=== PATIENT | female | born 1975 | race African-American/Black ===

== ENCOUNTER 2016-11-14 11:36 | Inpatient (IN) | payer MEDICAID ==
[2016-11-14] MEDS ORDERED: ZOFRAN IV PRN (11:44)
[2016-11-14] MEDS ORDERED: ePHEDrine SULFATE IV PRN (11:44)
[2016-11-14] MEDS ORDERED: SUBLIMAZE IV PRN (11:44)
[2016-11-14] MEDS ORDERED: XYLOCAINE 2% INFILTRATI ONE ×2 (11:44→14:41)
[2016-11-14] MEDS ORDERED: BRETHINE SUB-Q PRN (11:44)
[2016-11-14] MEDS ORDERED: MINERAL OIL PO PRN (11:44)
[2016-11-14] MEDS ORDERED: POLYCILLIN/NS 2 GM/100 ML 2 GM/100 ML BAG IV ONE (11:44)
--- NOTE | 2016-11-14 11:51 | History and Physical Report ---
History of Present Illness Date of examination: 11/14/16 Date of admission: 11/14/16 11:36 Chief complaint: actice labor, sent from office 7cms History of present illness: EDC Confirmation: 11/21/2016 Past History : 5 Term Births: 2 Premature Births: 1 Living Children: 3 Para: 3 Aborta: 1 Spont. Ab: 1 # 1 Delivery date: 11/06/1994 Weeks Gestation: 40 labor: no Delivery type: Hours of labor: 13 Delivery location: [facility] Sex: Male Comments: vaginal breech delivery # 2 Delivery date: 08/01/2004 Weeks Gestation: 24 labor: yes Delivery type: Delivery location: [facility] Infant Sex: Male weight: 15 oz Comments: survived # 3 Delivery date: 07/23/2011 Weeks Gestation: 40 labor: no Delivery type: Hours of labor: 5 Delivery location: [facility] Infant Sex: Male # 4 Delivery date: 09/09/2014 Delivery type: SAB Past Medical History Abnormal PAP: negative CINDY Exposure: negative Infertility: negative Uterine Anomaly: negative Uterine Surgery (not C/S): negative Other Gynecologic Problems: negative Infection History Hx of STD: none HIV Risk Eval: low risk Hepatitis B Risk Eval: low risk Personal hx. of genital herpes: yes Partner hx. of genital herpes: no Varicella/Chicken Pox Status: Previous Disease TB Risk: no Genetic History ADVANCED MATERNAL AGE Congenital Heart Defect: Mom: no Dad: no Domenica Disease: Mom: no Dad: no Thalassemia Mom: no Dad: no Neural Tube Defect Mom: no Dad: no Down's Syndrome Mom: no Dad: no Paul-Sachs Mom: no Dad: no Sickle Cell Disease/Trait Mom: no Dad: no Hemophilia Mom: no Dad: no Muscular Dystrophy Mom: no Dad: no Cystic Fibrosis Mom: no Dad: no Arthur Chorea Mom: no Dad: no Mental Retardation Mom: no Dad: no Fragile X Mom: no Dad: no Other Genetic/Chromosomal Disorder Mom: no Dad: no Child w/other defect Mom: no Dad: no Enviromental Exposures Xray Exposure: no Medication, drug, or alcohol use since LMP: no Chemical/Other Exposure: no Exposure to Cat Liter: no Active Medications (reviewed today): PNV () Current Allergies (reviewed today): No known allergies Past History Social history: no significant social history, - Obstetrical History Expected Date of Delivery: 11/21/16 Actual Gestation: 39 Week(s) 0 Day(s) : 5 Para: 3 Hx # Term Pregnancies: 2 Number of Pregnancies: 1 Spontaneous Abortions: 1 Induced : 0 Number of Living Children: 3 Medications and Allergies Active Meds: Active Medications Ephedrine Sulfate (Ephedrine Sulfate) 10 mg IV Q2M PRN PRN Reason: Hypotension Stop: 11/14/16 11:49 Fentanyl (Sublimaze) 100 mcg IV Q2H PRN PRN Reason: Labor Pain Ampicillin Sodium (Polycillin/Ns 2 Gm/100 Ml) 2 gm in 100 mls @ 100 mls/hr IV ONCE ONE PRN Reason: Protocol Stop: 11/14/16 12:43 Ampicillin Sodium (Polycillin/Ns 1 Gm/50 Ml) 1 gm in 50 mls @ 100 mls/hr IV Q4HR LES PRN Reason: Protocol Lactated Ringer's (Lactated Ringers) 1,000 mls @ 125 mls/hr IV DIRECT LES Oxytocin/Sodium Chloride (Pitocin/Ns 20 Unit/1000ml Drip) 20 units in 1,000 mls @ 125 mls/hr IV DIRECT LES Lidocaine (Xylocaine 2%) 20 ml INFILTRATI ONCE ONE Stop: 11/14/16 11:45 Mineral Oil (Mineral Oil) 30 ml PO QHS PRN PRN Reason: Constipation Ondansetron HCl (Zofran) 4 mg IV Q8H PRN PRN Reason: Nausea And Vomiting Terbutaline Sulfate (Brethine) 0.25 mg SUB-Q ONCE PRN PRN Reason: Hyperstimulation/Hypertonicity Stop: 11/14/16 11:45 Review of Systems All systems: negative - Physical Exam Breasts: Positive: normal Cardiovascular: Regular rate Lungs: Positive: Clear to auscultation, Normal air movement Abdomen: Positive: normal appearance, soft Genitourinary (Female): Positive: normal external genitalia, normal perenium Vulva: both: normal Vagina: Positive: normal moisture Uterus: Positive: normal size, normal contour Anus/Rectum: Positive: normal perianal skin Extremities: Positive: normal Deep Tendon Reflex Grade: Normal +2 - Obstetrical FHR: category 1 Uterine Contraction Monitor Mode: External Cervical Dilatation: 7 Cervical Effacement Percentage: 80 station: -1 Uterine Contraction Frequency (min): 3-5 Uterine Contraction Duration: 90 Uterine Contraction Pattern: Regular Uterine Tone Measurement Phase: Contraction Uterine Contraction Intensity: Moderate Results All other labs normal. Blood Type: B (08/15/2016) Rh Type: positive (08/15/2016) Rh Antibody Screen: negative (08/15/2016) Hgb: 12.9 (08/15/2016) Hct: 40.8 (08/15/2016) Platelets: 211 (08/15/2016) Rubella: immune (08/15/2016) Pap Smear: normal (08/09/2016) Urine Culture: neg (08/15/2016) 1 Hour GTT: 141 (08/15/2016) 3 Hour GTT - fastin (08/21/2016) - 1 hour: 160 (08/21/2016) - 2 hour: 152 (08/21/2016) - 3 Hour: 117 (08/21/2016) Optional Labs Sickle Cell: negative (06/18/2016) Cystic Fibrosis: negative (06/18/2016) Patient: JANENE IBANEZ ID: [id number] Note: All result statuses are Final unless otherwise noted. Tests: (1) Chlamydia/GC Amplification ([id number]) Order Note: Clinical Information: SRC:VR SRC:UR Chlamydia trachomatis, FIDENCIO Negative Negative *1 Neisseria gonorrhoeae, FIDENCIO Negative Negative *2 Tests: (2) Strep Gp B FIDENCIO ([id number]) ! Strep Gp B FIDENCIO [A] Positive Negative *3 Assessment and Plan 41y/o @ 39 weeks in active labor. patient seen in office today for routine NST d/t AMA, c/o ctx since this morning. SVE /-1 BBOW, vertex. GBS + . EFW at [facility] 10/30 6#0. Admission orders in EMR. Anticipate . Dr. Murcia aware of admission. - Patient Problems (1) Active labor at term Current Visit: Yes Status: Acute (2) GBS carrier Current Visit: Yes Status: Acute Plan to address problem: Antibiotics q4h until delivery (3) 39 weeks gestation of Current Visit: Yes Status: Acute (4) Advanced maternal age (AMA), 40 years or greater Current Visit: Yes Status: Acute
[2016-11-14] MEDS ORDERED: PITOCin/NS 20 UNIT/1000ML DRIP 20 UNITS/1,000 ML BAG IV SCH (12:00)
[2016-11-14] MEDS ORDERED: LACTATED RINGERS 1,000 ML IV SCH (12:00)
[2016-11-14 12:32] LABS: Hematocrit 41.3 % (30.3-42.9); Mean Corpuscular HGB Conc 34 % (30-34); Mean Corpuscular Hemoglobin 30 pg (28-32); Mean Corpuscular Volume 88 fl (79-97); Platelet Count 195 K/mm3 (140-440); Red Blood Count 4.67 M/mm3 (3.65-5.03); Red Cell Distribution Width 14.1 % (13.2-15.2); White Blood Count 11.2 K/mm3 (4.5-11.0)
[2016-11-14] MEDS ORDERED: PITOCin/NS 20 UNIT/1000ML DRIP IV ONE (14:00)
[2016-11-14] MEDS ORDERED: MOTRIN PO PRN (15:01)
[2016-11-14] MEDS ORDERED: PERCOCET 5/325 PO ONE (15:02)
--- NOTE | 2016-11-14 15:06 | Procedure Note ---
OB Delivery Note - Delivery Date of Delivery: 11/14/16 ( male) Cash Application Representative: SREE ELLIS Estimated blood loss: 300cc - Vaginal Delivery presentation: vertex Delivery position: OA (MANNY) Intrapartum events: none Delivery induction: none Delivery augmentation: rupture of membranes Delivery monitor: external FHT, external uterine Route of delivery: Delivery placenta: spontaneous Delivery cord: 3 umbilical vessels Episiotomy: none Delivery laceration: 1st degree Delivery repair: vicryl Anesthesia: local Delivery comments: male infant del MANNY over intact perineum, no shoulder dystocia. placed skin to skin on mother's abd. 3 vessel cord clamped and cut. Placenta del complete and intact. 1st degree laceration repaired in usual fashion with local anesthesia. EBL 300, apgars 8/9, wt 7#15. Mother and LDR stable. - Infant A at 1 minute: 8 at 5 minutes: 9 Gender: Male (7#15)
[2016-11-14] MEDS ORDERED: POLYCILLIN/NS 1 GM/50 ML 1 GM/50 ML BAG IV SCH (15:45)
[2016-11-14] MEDS ORDERED: TUCKS PAD TP PRN (16:44)
[2016-11-14] MEDS ORDERED: SODIUM CHLORIDE FLUSH SYRINGE 10 ML IV SCH (16:44)
[2016-11-14] MEDS ORDERED: TYLENOL PO PRN (16:44)
[2016-11-14] MEDS ORDERED: MILK OF MAGNESIA PO PRN (16:44)
[2016-11-14] MEDS ORDERED: DERMOPLAST TP PRN (16:44)
[2016-11-14] MEDS ORDERED: LANSINOH TP PRN (16:44)
[2016-11-14] MEDS ORDERED: PHENERGAN PO PRN (16:44)
[2016-11-14] MEDS ORDERED: BENADRYL PO PRN (16:44)
[2016-11-14] MEDS ORDERED: DULCOLAX PR PRN (16:44)
[2016-11-14] MEDS: MOTRIN PO SCH (18:53)
[2016-11-14] MEDS: NORCO 5/325 PO PRN (21:36)
[2016-11-14] MEDS: COLACE PO SCH (21:36)
[2016-11-15] MEDS: MOTRIN PO SCH ×4 (01:00→18:26)
[2016-11-15] MEDS: NORCO 5/325 PO PRN (05:38)
[2016-11-15 05:50] LABS: Hematocrit 33.1 % (30.3-42.9); Hemoglobin 11.4 gm/dl (10.1-14.3)
[2016-11-15] MEDS ORDERED: BOOSTRIX IM ONE (06:00)
[2016-11-15] MEDS: COLACE PO SCH ×2 (10:05→21:34)
[2016-11-15] MEDS: PRENATAL VITAMIN PO SCH (10:05)
--- NOTE | 2016-11-15 11:06 | Progress Note ---
Assessment and Plan Patient doing well w/o complaints. desires d/c home as soon as possible ( on 48h hold d/t inadequate treatment for GBS). MOMO Randle, H&H 11.4/33.1. Patient plans on paraguard for contraception. plan for routine f/u in office 4 weeks. - Patient Problems (1) GBS carrier Current Visit: Yes Status: Acute (2) (spontaneous vaginal delivery) Current Visit: Yes Status: Acute Subjective - Subjective Date of service: 11/15/16 Principal diagnosis: day #1 s/p , GBS + Interval history: EDC Confirmation: 11/21/2016 Past History : 5 Term Births: 2 Premature Births: 1 Living Children: 3 Para: 3 Aborta: 1 Spont. Ab: 1 # 1 Delivery date: 11/06/1994 Weeks Gestation: 40 labor: no Delivery type: Hours of labor: 13 Delivery location: [facility] Sex: Male Comments: vaginal breech delivery # 2 Delivery date: 08/01/2004 Weeks Gestation: 24 labor: yes Delivery type: Delivery location: [facility] Infant Sex: Male weight: 15 oz Comments: survived # 3 Delivery date: 07/23/2011 Weeks Gestation: 40 labor: no Delivery type: Hours of labor: 5 Delivery location: [facility] Sex: Male # 4 Delivery date: 09/09/2014 Delivery type: SAB Past Medical History Abnormal PAP: negative CINDY Exposure: negative Infertility: negative Uterine Anomaly: negative Uterine Surgery (not C/S): negative Other Gynecologic Problems: negative Infection History Hx of STD: none HIV Risk Eval: low risk Hepatitis B Risk Eval: low risk Personal hx. of genital herpes: yes Partner hx. of genital herpes: no Varicella/Chicken Pox Status: Previous Disease TB Risk: no Genetic History ADVANCED MATERNAL AGE Congenital Heart Defect: Mom: no Dad: no Domenica Disease: Mom: no Dad: no Thalassemia Mom: no Dad: no Neural Tube Defect Mom: no Dad: no Down's Syndrome Mom: no Dad: no Paul-Sachs Mom: no Dad: no Sickle Cell Disease/Trait Mom: no Dad: no Hemophilia Mom: no Dad: no Muscular Dystrophy Mom: no Dad: no Cystic Fibrosis Mom: no Dad: no Larue Chorea Mom: no Dad: no Mental Retardation Mom: no Dad: no Fragile X Mom: no Dad: no Other Genetic/Chromosomal Disorder Mom: no Dad: no Child w/other defect Mom: no Dad: no Enviromental Exposures Xray Exposure: no Medication, drug, or alcohol use since LMP: no Chemical/Other Exposure: no Exposure to Cat Liter: no Active Medications (reviewed today): PNV () Current Allergies (reviewed today): No known allergies Patient reports: appetite normal, voiding normally, pain well controlled, ambulating normally, no dizzy ambulation, no nauseated : doing well, bottle feeding Objective - Vital Signs Latest vital signs: Vital Signs Temp Pulse Resp BP BP BP 11/15/16 07:26 98.5 F 76 18 100/70 11/15/16 04:30 98.6 F 77 16 99/76 11/15/16 00:20 98.8 F 69 16 101/69 11/14/16 19:30 98.6 F 66 16 101/71 11/14/16 15:39 90 119/73 11/14/16 15:24 87 123/75 11/14/16 15:09 85 120/74 11/14/16 14:55 98.2 F 20 11/14/16 14:47 90 124/68 11/14/16 14:17 86 126/74 11/14/16 13:10 84 116/71 11/14/16 12:33 79 126/76 11/14/16 12:31 97.2 F L 79 18 11/14/16 11:59 80 145/86 Intake and Output 11/14/16 11/15/16 11/15/16 23:59 07:59 15:59 Intake Total 440 300 240 Output Total 801 800 Balance -361 -500 240 Intake: Oral 440 240 Intake, Free Water 300 Output: Urine 801 800 Void 801 800 Other: Total, Intake Amount 240 Total, Output Amount 800 800 Voiding Method Toilet Toilet # Voids 1 Void 1 1 - Exam Breasts: Present: normal Cardiovascular: Present: Regular rate Lungs: Present: Clear to auscultation, Normal air movement Abdomen: Present: normal appearance, soft Vulva: both: laceration/episiotomy Uterus: Present: normal, firm, fundal height at umbilicus Extremities: Present: normal Incision: Present: normal, dry, intact - Labs Labs: Abnormal lab results 11/14/16 Range/Units 12:00 WBC 11.2 H (4.5-11.0) K/mm3
--- NOTE | 2016-11-15 11:08 | Discharge Summary ---
Providers - Providers Date of Admission: 11/14/16 11:36 Date of discharge: 11/16/16 (desires d/c home) Attending physician: NEHA PATEL 11/14/16 16:44 Consult to Clothing Sales Assistant [CONS] Routine Reason For Exam: assistance with , SNS Primary care physician: NEHA PATEL Hospitalization Reason for admission: active labor Delivery: Episiotomy: none Laceration: 1st degree Incision: normal, dry, intact Other procedures: none complications: none Discharge diagnosis: IUP at term delivered [place] baby: male Hospital course: uncomplicated vaginal Condition at discharge: Good Disposition: DC-01 TO HOME OR SELFCARE - Discharge Diagnoses (1) GBS carrier Status: Acute (2) (spontaneous vaginal delivery) Status: Acute Plan - Discharge Medications Prescriptions: Ibuprofen [Motrin 800 MG tab] 800 mg PO Q8HR PRN #30 tablet PRN Reason: Pain Lidocain2.5%/Prilocai2.5% [Emla] 5 gm TP ONCE PRN #1 tube PRN Reason: Pain - Provider Discharge Summary Activity: routine, no sex for 6 weeks, no heavy lifting 4 weeks, no strenuous exercise Diet: routine Instructions: routine Additional instructions: [] Smoking cessation referral if applicable(refer to patient education folder for contact #) [] Refer to [facility]'s [facility] Booklet Call your doctor immediately for: * Fever > 100.5 * Heavy vaginal bleeding ( >1 pad per hour) * Severe persistent headache * Shortness of breath * Reddened, hot, painful area to leg or breast * Drainage or odor from incision. * Keep incision clean and dry at all times and follow doctor's instructions regarding bathing/showering - Follow up plan Follow up: NEHA PATEL MD [Primary Care Provider] - 7 Days (Congratulations!! Please call the office @ [phone] to schedule your son's circumcision in 1 week and your visit in 4 weeks. Bring EMLA cream to your son's appointment and await further instructions. Call for any questions or concerns.)
[2016-11-15] MEDS ORDERED: Fluarix Quad 2017-2018(36 MOS+) IM ONE (12:00)
[2016-11-16] MEDS: MOTRIN PO SCH ×2 (00:20→06:21)
[2016-11-16 08:35] VITALS: BP 108/75
[2016-11-16] MEDS: PRENATAL VITAMIN PO SCH (08:59)
[2016-11-16] MEDS: COLACE PO SCH (08:59)
== END 2016-11-16 16:00 | disposition home or self-care (01) | DRG 775 ==
LOC: LD 11:36 → OB 16:26
PROVIDERS: ADMIT Obstetrics & Gynecology; ATTEND Obstetrics & Gynecology
PROC: 3E0234Z Introduction of Serum, Toxoid and Vaccine into Muscle, Percutaneous Approach (ICD-10-PCS; principal; 2016-11-14)
PROC: 10E0XZZ Delivery of Products of Conception, External Approach (ICD-10-PCS; 2016-11-14)
PROC: 0HQ9XZZ Repair Perineum Skin, External Approach (ICD-10-PCS; 2016-11-14)
DX: O99.824 Streptococcus B carrier state complicating childbirth (principal); Z37.0 Single live birth; Z3A.39 39 weeks gestation of pregnancy; Z23 Encounter for immunization; O70.0 First degree perineal laceration during delivery
CPT/HCPCS: 36415; 85014; 85018; 85027; 86592; 86706; 86850; 86900; 86901; 99211; G0463; J0290; J2590; J7120